=== PATIENT | female | born 1985 | race Caucasian/White ===

== ENCOUNTER 2017-08-13 16:51 | Inpatient (IN) | payer BC ==
--- NOTE | 2017-08-13 19:34 | HP ---
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 Review of Systems Constitutional: Uncomfortable CV Complaint: No Respiratory: Shortness of Breath: No Genitourinary: No Leaking Fluid - soft stool this am, nausea Musculoskeletal: Back Pain, Contractions Neurological: No Headache Movement: Normal Exam Allergies/Adverse Reactions: Allergies No Known Allergies Allergy (Verified 08/13/17 17:49) 99.0-109/65-64 - Measurements Height: 5 ft 5 in Weight: 176 lb Weight in lbs: 176 Body Mass Index (BMI): 29.2 Pre- Weight: 143 lb Weight Gained This : 33 lbs and 0 ozs - Exam Extremities: No Edema Heart: Normal Rhythm/Heart Sounds HEENT: No Significant Findings Lungs: Clear Bilaterally - Breasts: soft, no masses - Cervical Exam 6-7cm/100%/vtx -1 - Abdominal Exam Abdomen Exam: Fundal Height Consistent with Dates Abdomen Exam Comment: EFW 7.5 lbs - Membranes Membrane Status: Intact - Ultrasound/Biophysical Profile Ultrasound Status: Not Done EFM Findings - External Monitor Findings Baseline Heart Rate: 120 External Monitor Findings: Accelerations Present, No Pattern of Variable or Late Decelerations, Variability Moderate, Baseline Stable Contractions: Regular, Strong, 45-90 Seconds Contraction Frequency: q 3 Assessment/Plan - Reason for Visit Reason for Visit: labor - Obstetrical Risk Factors Obstetrical Risk Factors: Post-Dates - Plan Plan: Active Labor Plan Comment: Anticipate vaginal delivery - Date/Time of Admission Date of Admission: 08/13/17 Time of Admission: 19:20
[2017-08-14] MEDS ORDERED: Acetaminophen TAB* 325 MG PO PRN (06:12)
[2017-08-14] MEDS ORDERED: OXYTOCIN* 10 UNITS/ML 1 ML VIAL IM ONE (06:12)
[2017-08-14] MEDS ORDERED: Misoprostol TAB* 200 MCG PR ONE (06:12)
[2017-08-14] MEDS ORDERED: Dibucaine 1% 28.35 GM TUBE PR PRN (06:12)
[2017-08-14] MEDS ORDERED: Glycerin ADULT SUPP PR PRN (06:12)
[2017-08-14] MEDS: Ibuprofen TAB* 600 MG PO PRN ×3 (08:15→19:54)
[2017-08-14] MEDS: Witch Hazel PAD* JAR TOPICAL PRN (08:16)
[2017-08-14] MEDS: Docusate CAP* 100 MG PO SCH ×3 (08:16→21:12)
[2017-08-14] MEDS ORDERED: Simethicone TAB* 80 MG TAB.CHEW PO SCH (08:30)
[2017-08-15] MEDS: Ibuprofen TAB* 600 MG PO PRN ×2 (08:18→15:34)
[2017-08-15] MEDS: Docusate CAP* 100 MG PO SCH ×3 (09:15→21:10)
[2017-08-15] MEDS: Ferrous Gluconate TAB* 324 MG TAB PO SCH ×3 (09:15→21:10)
[2017-08-15 10:53] LABS: Hematocrit 29 % (35-47); Hemoglobin 9.8 g/dl (12.0-16.0); Mean Corpuscular HGB Conc 34 g/dl (31-36); Mean Corpuscular Hemoglobin 31 pg (27-31); Mean Corpuscular Volume 91 fL (80-97); Mean Platelet Volume 11 um3 (7.4-10.4); Platelet Count 124 10^3/ul (150-450); Red Cell Distribution Width 13 % (10.5-15)
[2017-08-16 07:44] VITALS: BP 97/50
[2017-08-16] MEDS: Ibuprofen TAB* 600 MG PO PRN (08:03)
[2017-08-16] MEDS: Ferrous Gluconate TAB* 324 MG TAB PO SCH (08:03)
[2017-08-16] MEDS: Docusate CAP* 100 MG PO SCH (08:03)
[2017-08-16] MEDS: Witch Hazel PAD* JAR TOPICAL PRN (08:04)
== END 2017-08-16 11:11 | disposition home or self-care (01) | DRG 560 ==
LOC: MCHOBOUT 16:51 → MCHOB 19:25
PROVIDERS: ADMIT Midwife; ATTEND Pediatrics
PROC: 10E0XZZ Delivery of Products of Conception, External Approach (ICD-10-PCS; principal; 2017-08-14)
PROC: 10907ZC Drainage of Amniotic Fluid, Therapeutic from Products of Conception, Via Natural or Artificial Opening (ICD-10-PCS; 2017-08-14)
PROC: 0KQM0ZZ Repair Perineum Muscle, Open Approach (ICD-10-PCS; 2017-08-14)
DX: O48.0 Post-term pregnancy (principal); D64.9 Anemia, unspecified; O77.0 Labor and delivery complicated by meconium in amniotic fluid; O90.81 Anemia of the puerperium; O70.1 Second degree perineal laceration during delivery; Z37.0 Single live birth; Z3A.41 41 weeks gestation of pregnancy
CPT/HCPCS: 36415; 85027; A9270-GY; J2590